=== PATIENT | male | born 1955 | race Two or more races ===

== ENCOUNTER 2022-03-07 21:22 | Emergency (ER) | payer SELFPAY ==
[~2022-03-07] VITALS: Ht 157.5 cm; Wt 59.4 kg
[2022-03-08 00:27] VITALS: BP 126/78
[2022-03-08] MEDS ORDERED: TETANUS-DIPTH-ACEL PERTUSSIS 0.5ML SYR Tdap IM ONE (00:45)
== END 2022-03-08 01:06 | disposition home or self-care (01) ==
LOC: ER 21:27
DX: S61.412A Laceration without foreign body of left hand, initial encounter (principal); X58.XXXA Exposure to other specified factors, initial encounter; Y93.89 Activity, other specified; Y92.89 Other specified places as the place of occurrence of the external cause; Y99.8 Other external cause status
CPT/HCPCS: 12001; 90471; 90715